=== PATIENT | male | born 1975 | race Caucasian/White ===

== ENCOUNTER 2016-07-15 10:58 | Day surgery (SDC) | payer OTHER ==
[2016-07-13 09:42] VITALS: BMI 34.8
[~2016-07-15 10:58] MED LIST: CLINDAMYCIN 900 MG in DEXTROSE 5% IN WATER 50 ML IVPB ONE; DEXAMETHASONE SOD PHOSPHATE 10 MG/ML 1 ML VIAL IV ONE; HEPARIN SODIUM,PORCINE 5,000 UNIT/ML 1 ML VIAL SQ ONE; LACTATED RINGERS 1,000 ML IV SCH; ONDANSETRON 4 MG/2 ML VIAL IVP ONE
[2016-07-15 11:49] LABS: Glucose,Whole Blood 134 mg/dL (75-99)
[2016-07-15] MEDS ORDERED: LIDOCAINE 1% 20 ML VIAL (10MG/ML) FOR IV START INTRADERMA ONE (11:49)
--- NOTE | 2016-07-15 11:57 | P.GSHP ---
History of Present Illness H&P Date: 07/15/16 Chief Complaint: Right upper quadrant pain This a 41-year-old male who presents today for laparoscopic cholecystectomy. Patient high scan which showed abnormal ejection fraction. Patient presents today for laparoscopic cholecystectomy. - Constitutional Constitutional: Reports as per HPI Past Medical History Past Medical History: Asthma, Diabetes Mellitus, Hyperlipidemia, Hypertension, Sleep Apnea/CPAP/BIPAP Additional Past Medical History / Comment(s): . uses cpap, History of Any Multi-Drug Resistant Organisms: None Reported Past Surgical History: Hernia Repair, Orthopedic Surgery Additional Past Surgical History / Comment(s): cyst removed lt hand & rt foot, rt inguinal hernia repair,sinuplasty Past Anesthesia/Blood Transfusion Reactions: Previous Problems w/ Anesthesia Additional Past Anesthesia/Blood Transfusion Reaction / Comment(s): low b/p after sinus surgery,no hx blood transfusion Past Psychological History: No Psychological Hx Reported Smoking Status: Never smoker Past Alcohol Use History: Occasional Past Drug Use History: None Reported - Past Family History Mother Additional Family Medical History / Comment(s): celiac disease, "cracked bladder " Father Family Medical History: Cancer Additional Family Medical History / Comment(s): leukemia,prostate ca Medications and Allergies Home Medications Medication Instructions Recorded Confirmed Type Alogliptin Richard/Pioglitazone 1 each PO DAILY 04/23/15 07/15/16 History [Oseni 25-45 mg Tablet] Ergocalciferol [Vitamin D2] 50,000 unit PO SUTH 04/23/15 07/15/16 History Lisinopril [Zestril] 20 mg PO QAM 04/23/15 07/15/16 History Loratadine [Claritin] 10 mg PO DAILY 04/23/15 07/15/16 History Montelukast [Singulair] 10 mg PO QAM 04/23/15 07/15/16 History Simvastatin [Zocor] 40 mg PO DAILY 04/23/15 07/15/16 History Lisdexamfetamine Dimesylate 60 mg PO QAM 07/13/16 07/15/16 History [Vyvanse] Allergies Allergy/AdvReac Type Severity Reaction Status Date / Time cefprozil [From Cefzil] Allergy Anaphylaxis Verified 07/13/16 09:32 cefuroxime axetil Allergy Anaphylaxis Verified 07/13/16 09:32 [From Ceftin] Surgical - Exam Vital Signs Temp Pulse Resp BP Pulse Ox 97.5 F L 102 H 18 148/90 97 07/15/16 11:31 07/15/16 11:31 07/15/16 11:31 07/15/16 11:31 07/15/16 11:31 - General well developed, no distress - Eyes PERRL - ENT normal pinna - Neck no masses - Respiratory normal expansion - Cardiovascular Rhythm: regular - Abdomen Abdomen: soft, non tender Results - Labs Abnormal Lab Results - Last 24 Hours (Table) 07/15/16 Range/Units 11:43 POC Glucose (mg/dL) 134 H (75-99) mg/dL Assessment and Plan Plan: Chronic cholecystitis. We'll perform laparoscopic cholecystectomy
[2016-07-15] MEDS ORDERED: ROCURONIUM BROMIDE 10 MG/ML 10 ML VIAL IV ONE (12:24)
[2016-07-15] MEDS ORDERED: GLYCOPYRROLATE 0.2 MG/ML 2 ML VIAL ONE (12:24)
[2016-07-15] MEDS ORDERED: MIDAZOLAM 2 MG/2 ML VIAL ONE (12:24)
[2016-07-15] MEDS ORDERED: fentaNYL (PF) 50 MCG/ML 2 ML AMP ONE (12:24)
[2016-07-15] MEDS ORDERED: PROPOFOL 10 MG/ML 20 ML VIAL IV ONE (12:24)
[2016-07-15] MEDS ORDERED: NEOSTIGMINE 1 MG/ML 10 ML VIAL ONE (12:24)
[2016-07-15] MEDS ORDERED: SUCCINYLCHOLINE CHLORIDE 100 MG/5 ML SYR IV ONE (12:24)
[2016-07-15] MEDS: GENTAMICIN 480 MG in SODIUM CHLORIDE 0.9% 100 ML IVPB ONE ×2 (12:34→12:52)
[2016-07-15] MEDS ORDERED: BUPIVACAIN-EPI 0.25%-1:200,000 30 ML VIAL SQ ONE (12:40)
[2016-07-15] MEDS ORDERED: LACTATED RINGERS 1,000 ML IV ONE (12:59)
--- NOTE | 2016-07-15 12:59 | P.OP ---
Date of Procedure: 07/15/16 Preoperative Diagnosis: Cholecystitis Postoperative Diagnosis: Cholecystitis Procedure(s) Performed: Laparoscopic cholecystectomy Anesthesia: TEE Surgeon: Simeon Jacobo Estimated Blood Loss (ml): 5 Pathology: other (Gallbladder) Condition: stable Disposition: PACU Description of Procedure: The patient was placed on the operating table. The patient received a general endotracheal tube anesthesia. The patients abdomen was prepped and draped in the usual sterile fashion. Through an infraumbilical stab incision, the fascia of the anterior abdominal wall was grasped with a pair of Kochers and then the Veress needle was placed in the peritoneal cavity. Position of the Veress needle was confirmed with positive drop test. The abdomen was then insufflated. After adequate insufflation, the 10 mm trocar was placed in the peritoneal cavity. Following this the laparoscope was placed in the peritoneal cavity. The patient was placed in the head-up, right side up position and then a 5 mm trocar was placed in the right lateral and right subcostal position under direct visualization. A 8 mm trocar was placed in the epigastric position. The gallbladder was grasped in the fundus and infundibulum. Traction on the gallbladder was placed in the lateral and the cephalad positions. The triangle of Calot was visualized.. The cystic duct was bluntly dissected until the union of the cystic duct and common bile duct was seen. The cystic duct was then divided and sealed with the Harmonic scissors. A PDS Endoloop was then placed throughout the cystic duct stump. The cystic artery divided and sealed with the Harmonic scissors. The gallbladder was then removed from the liver bed using Harmonic scissors. The gallbladder was then extracted through the epigastric port site. Operative field was checked for any bleeding spots and Harmonic scissors was used to coagulate the liver bed. The abdomen was irrigated. The trocars were removed. The skin was closed using interrupted 3-0 Vicryl suture. Dermabond dressing were applied. The patient tolerated the procedure well.
[2016-07-15] MEDS: HYDROmorphone 1 MG/ML 1 ML SYRINGE IVP PRN ×2 (13:16→13:22)
[2016-07-15] MEDS ORDERED: MIDAZOLAM 2 MG/2 ML VIAL IVP ONE (13:20)
[2016-07-15] MEDS ORDERED: KETOROLAC 30 MG/ML 1 ML VIAL IVP ONE (13:20)
[2016-07-15 13:28] VITALS: TEMP 97.2
[2016-07-15 14:02] VITALS: RESP 18
[2016-07-15] MEDS ORDERED: HYDROcodone/APAP 7.5-325MG 1 EACH TAB PO ONE (15:05)
[2016-07-15 15:43] VITALS: BP 138/91; PULSE 92
== END 2016-07-15 16:10 | disposition home or self-care (01) ==
LOC: OR 10:58
PROVIDERS: ATTEND Surgery
DX: K81.1 Chronic cholecystitis (principal); J45.909 Unspecified asthma, uncomplicated; E11.9 Type 2 diabetes mellitus without complications; Z79.84 Long term (current) use of oral hypoglycemic drugs; E78.5 Hyperlipidemia, unspecified; G47.30 Sleep apnea, unspecified; I10 Essential (primary) hypertension; Z99.89 Dependence on other enabling machines and devices; Z79.899 Other long term (current) drug therapy; Z88.1 Allergy status to other antibiotic agents
CPT/HCPCS: 88304; 47562; J2250; J1644; J1100; J2710; J2405; J3010; J1885; J1580; J1170; J0330; J2704

== ENCOUNTER → 2017-01-12 | Outpatient (CLI) | payer OTHER ==
--- NOTE | 2017-01-12 16:45 | CT ---
EXAMINATION TYPE: CT abdomen pelvis w con DATE OF EXAM: 01/12/2017 COMPARISON: NONE HISTORY: Patient complains of RLQ pain. CT DLP: 1869 mGycm Automated exposure control for dose reduction was used. TECHNIQUE: Helical acquisition of images was performed from the lung bases through the pelvis. CONTRAST: Performed with Oral Contrast and with IV Contrast, patient injected with 100 mL of Omnipaque 300. FINDINGS: Lung bases are clear. There is no pleural effusion. Heart size is normal. Liver shows no focal defect. Spleen pancreas appear normal. There are clips from cholecystectomy. Wiley e ducts are not dilated. There is no adrenal mass. Kidneys show satisfactory contrast opacification. There is no hydronephrosi s. Appendix appears normal. There are diverticula in the descending colon and sigmoid colon. There is mild fat stranding around the proximal sigmoid colon. Bladder distends smoothly. There is no evidenc e of a pelvic mass. I see no bony destructive process. There is spondylosis at L5-S1. IMPRESSION: MODERATE COLONIC DIVERTICULOSIS FOR THE PATIENT'S AGE. THERE IS EVIDENCE OF DIVERTICULITIS IN THE PROXIMAL SIGMOID COLON. NO DRAINABLE FLUID COLLECTION. NOR MAL APPENDIX.
== END | disposition home or self-care (01) ==
LOC: RADCTMAIN 14:39
PROVIDERS: ATTEND Family Medicine
DX: K57.32 Diverticulitis of large intestine without perforation or abscess without bleeding (principal); K57.30 Diverticulosis of large intestine without perforation or abscess without bleeding
CPT/HCPCS: 74177; Q9967

== ENCOUNTER 2017-12-20 08:04 | Day surgery (SDC) | payer OTHER ==
[2017-12-15 16:25] VITALS: BMI 31.1
[~2017-12-20 08:04] MED LIST changes: -CLINDAMYCIN 900 MG in DEXTROSE 5% IN WATER 50 ML IVPB ONE; -DEXAMETHASONE SOD PHOSPHATE 10 MG/ML 1 ML VIAL IV ONE; -HEPARIN SODIUM,PORCINE 5,000 UNIT/ML 1 ML VIAL SQ ONE; -ONDANSETRON 4 MG/2 ML VIAL IVP ONE
[2017-12-20 08:37] VITALS: TEMP 97.2
[2017-12-20 08:40] LABS: Glucose,Whole Blood 99 mg/dL (75-99)
[2017-12-20] MEDS ORDERED: fentaNYL (PF) 50 MCG/ML 2 ML AMP ONE (09:00)
[2017-12-20] MEDS ORDERED: LIDOCAINE 1% INJ 10MG/ML (20 ML MDV) ONE (09:00)
[2017-12-20] MEDS ORDERED: PROPOFOL 10 MG/ML 20 ML VIAL IV ONE (09:00)
--- NOTE | 2017-12-20 09:14 | P.GSHP ---
History of Present Illness H&P Date: 12/20/17 Chief Complaint: Indigestion, diarrhea, constipation This is a 42-year-old male referred from Dr. Usha pennington. Patient presents today for EGD and colonoscopy. He's had issues with indigestion, dyspepsia and alternating diarrhea and constipation. Past Medical History Past Medical History: Asthma, Diabetes Mellitus, Hyperlipidemia, Hypertension, Sleep Apnea/CPAP/BIPAP Additional Past Medical History / Comment(s): DOES NOT uses cpap, History of Any Multi-Drug Resistant Organisms: None Reported Past Surgical History: Cholecystectomy, Hernia Repair, Orthopedic Surgery Additional Past Surgical History / Comment(s): cyst removed lt hand & rt foot, rt inguinal hernia repair,sinuplasty Past Anesthesia/Blood Transfusion Reactions: Previous Problems w/ Anesthesia Additional Past Anesthesia/Blood Transfusion Reaction / Comment(s): low b/p after sinus surgery, no hx blood transfusion Smoking Status: Never smoker - Past Family History Mother Additional Family Medical History / Comment(s): celiac disease, "cracked bladder " Father Family Medical History: Cancer Additional Family Medical History / Comment(s): leukemia,prostate ca Medications and Allergies Home Medications Medication Instructions Recorded Confirmed Type Ergocalciferol [Vitamin D2] 50,000 unit PO SUTH 04/23/15 12/20/17 History Lisinopril [Zestril] 20 mg PO QAM 04/23/15 12/15/17 History Loratadine [Claritin] 10 mg PO DAILY 04/23/15 12/20/17 History Montelukast [Singulair] 10 mg PO QAM 04/23/15 12/20/17 History Simvastatin [Zocor] 40 mg PO DAILY 04/23/15 12/20/17 History Lisdexamfetamine Dimesylate 60 mg PO QAM 07/13/16 12/20/17 History [Vyvanse] Albuterol Inhaler [Ventolin Hfa 1 - 2 puff INHALATION RT-Q6H PRN 12/15/17 History Inhaler] Baclofen [Lioresal] 20 mg PO HS 12/15/17 12/20/17 History Empagliflozin [Jardiance] 25 mg PO HS 12/15/17 12/20/17 History Gabapentin [Neurontin] 300 mg PO HS 12/15/17 12/20/17 History Pantoprazole [Protonix] 40 mg PO DAILY 12/15/17 12/20/17 History Victoza 1.8 mg SQ HS 12/15/17 12/20/17 History Allergies Allergy/AdvReac Type Severity Reaction Status Date / Time cefprozil [From Cefzil] Allergy Anaphylaxis Verified 12/20/17 08:19 cefuroxime axetil Allergy Anaphylaxis Verified 12/20/17 08:19 [From Ceftin] Surgical - Exam Vital Signs Temp Pulse Resp BP Pulse Ox 97.2 F L 90 17 127/89 99 12/20/17 08:36 12/20/17 08:36 12/20/17 08:36 12/20/17 08:36 12/20/17 08:36 - General well developed, well nourished, no distress - Eyes PERRL - ENT normal pinna - Neck no masses - Respiratory normal expansion - Cardiovascular Rhythm: regular - Abdomen Abdomen: soft, non tender Assessment and Plan Assessment: Indigestion, diarrhea, constipation. We'll perform EGD and colonoscopy.
--- NOTE | 2017-12-20 09:31 | P.OP ---
Date of Procedure: 12/20/17 Preoperative Diagnosis: Indigestion Diarrhea Constipation Postoperative Diagnosis: Antral gastritis Mild diverticulosis Procedure(s) Performed: EGD Colonoscopy Anesthesia: MAC Surgeon: Simeon Jacobo Pathology: other (Antrum) Condition: stable Disposition: PACU Description of Procedure: The patient's placed on the endoscopy table in the lateral position. He received IV sedation. Digital rectal exam was performed which revealed no abnormality. The prostate was symmetric without nodules. Flexible colonoscope was then placed patient anus passed throughout the entire colon. The ileocecal valve visualized. The cecum, ascending transverse colon appeared normal. In the descending; was mild diverticular changes. There is known to Dr. escobedo. Scope summer back the rectum was performed. Scope was withdrawn for patient. Next the gastric scope placed oropharynx passed in the esophagus and stomach. Scope was then placed through the pylorus. The first and second portion of the duodenum appeared normal. The scope was then brought back and the antrum and this appeared to be inflamed. There is evidence of some minor hemorrhagic gastritis. This area is biopsied. The scope was then retroflexed and the remainder of the stomach appeared normal. The GE junction was at 40 cm. There is no evidence of hiatal hernia. The distal esophagus and proximal esophagus appeared normal. Scope was withdrawn for patient.
[2017-12-20 09:36] VITALS: RESP 16
[2017-12-20 09:57] VITALS: BP 117/79; PULSE 81
== END 2017-12-20 10:07 | disposition home or self-care (01) ==
LOC: ORWHC2ENDO 08:04
PROVIDERS: ATTEND Surgery
DX: K31.9 Disease of stomach and duodenum, unspecified (principal); K57.90 Diverticulosis of intestine, part unspecified, without perforation or abscess without bleeding; J45.909 Unspecified asthma, uncomplicated; E11.9 Type 2 diabetes mellitus without complications; E78.5 Hyperlipidemia, unspecified; I10 Essential (primary) hypertension; G47.30 Sleep apnea, unspecified; Z80.42 Family history of malignant neoplasm of prostate; Z80.6 Family history of leukemia; Z83.79 Family history of other diseases of the digestive system; Z79.84 Long term (current) use of oral hypoglycemic drugs; Z79.82 Long term (current) use of aspirin; Z79.899 Other long term (current) drug therapy; Z88.1 Allergy status to other antibiotic agents
CPT/HCPCS: 88305; 45378; 43239; J2001; J3010; J2704

== ENCOUNTER → 2018-08-11 | Outpatient (CLI) | payer OTHER ==
--- NOTE | 2018-08-12 17:41 | MR ---
EXAMINATION TYPE: MR hand RT wo con DATE OF EXAM: 08/11/2018 COMPARISON: None HISTORY: Pain and swelling Standard multiplanar, multisequence MRI departmental protocol Multiplanar, multisequence images of the right hand were acquired. Diffusion weighted imaging was per formed. FINDINGS: The metacarpals are intact. There is no evidence for fracture. I see no bony destructive pr ocess. There is no evidence of a soft tissue mass. The flexor and extensor tendons appear intact. The intercarpal joint spaces appear fairly normal. There is no subluxation. IMPRESSION: Negative MR scan of the right hand.
== END | disposition home or self-care (01) ==
LOC: RADMRIMAIN 20:20
PROVIDERS: ATTEND Family Medicine
DX: G56.21 Lesion of ulnar nerve, right upper limb (principal)

== ENCOUNTER → 2018-08-14 | Outpatient (CLI) | payer OTHER ==
--- NOTE | 2018-08-16 08:17 | MR ---
MR right wrist HISTORY: Pain and swelling, clicking, G 56.21 Multiplanar multisequence imaging obtained through the right wrist and correlated to right hand MRI , no plain film submitted. There is T2 intense focus noted within the subchondral location of distal scaphoid and also proximal capitate suggestive of geode formation, reactive marrow signal changes noted. Joint space loss, loss of articular cartilage is noted, similar signal changes present at the subchondral location at its ar ticulation with the scaphoid of the trapezoid. There is some hypertrophic change present. Minimal sub chondral signal change present at the proximal first metacarpal also present. Scapholunate, lunotriqu etral ligaments are intact. Triangular fibrocartilage intact. Minimal joint effusion present. There is some T2 intense signal present at the level of the extensor carpi ulnaris tendon, some fluid signal present along the tendon sheath, the tendon is subluxed slightly in a volar direction. Findin gs suggest subacute injury. There is associated increased internal signal within the tendon suggestin g partial tear, tendinosis. Subcutaneous tissues show some mild T2 intensity suggestive of associated soft tissue edema. IMPRESSION: There is likely injury to the extensor carpi ulnaris tendon itself sheath, associated ten dinosis with slight subluxation, there may be partial tear of the tendon. Osteoarthritis.
== END | disposition home or self-care (01) ==
LOC: RADMRIMAIN 19:37
PROVIDERS: ATTEND Family Medicine
DX: M19.031 Primary osteoarthritis, right wrist (principal)

== ENCOUNTER → 2022-03-16 | Outpatient (CLI) | payer BC ==
--- NOTE | 2022-03-16 09:40 | CT ---
EXAMINATION TYPE: CT iac wo con CT DLP: 150.00 mGycm, Automated exposure control for dose reduction was used. DATE OF EXAM: 03/16/2022 6:43 AM INDICATION: Patient age:Male; 46 years old; Reason for study: H92.02 Otalgia L ear; [facility]. COMPARISON: CT facial bones 02/02/2012. TECHNIQUE: Multiple thin axial images were obtained through the temporal bones and internal auditory canals. Additional coronal reformatted images were obtained. No IV contrast was utilized. FINDINGS: Right Temporal Bone: External Ear: The external auditory canal is unremarkable, The tympanic membrane is present and unrem arkable. Middle Ear: The ossicles demonstrate a normal appearance. Prussak's space is clear and the scutum i s intact. There is no evidence of osseous erosion and the tegmen tympani is intact. Inner Ear: Cochlea, vestibule and semi circular canals are unremarkable. No evidence of carotid jordan l dehiscence. Two and a half turns of the cochlea are identified. The vestibular aqueduct is not enl arged. Mastoid Air Cells: Minimal opacification of the inferior mastoid air cells. No osseous erosions. The tegmen mastoideum is intact. The aditus ad antrum is clear. Internal Auditory Canal: The internal auditory canal is unremarkable. High riding jugular bulb. Left Temporal Bone: External Ear: The external auditory canal is unremarkable, The tympanic membrane is present and unrem arkable. Middle Ear: The ossicles demonstrate a normal appearance. Prussak's space is clear and the scutum i s intact. There is no evidence of osseous erosion and the tegmen tympani is intact. Inner Ear: Cochlea, vestibule and semi circular canals are unremarkable. No evidence of carotid jordan l dehiscence. Two and a half turns of the cochlea are identified. The vestibular aqueduct is not enl arged. Mastoid Air Cells: The mastoid air cells are clear. The tegmen mastoideum is intact. The aditus ad an trum is clear. Internal Auditory Canal: The internal auditory canal is unremarkable. Suggested 2.4 cm mucous retention cyst within the left maxilla sinus. Minimal mucosal thickening of t he bilateral maxillary sinuses. IMPRESSION: 1. Minimal opacification inferior right mastoid air cells. No osseous erosions. Correlate for mastoi ditis. 2. High riding right jugular bulb.
== END | disposition home or self-care (01) ==
LOC: RADCTMAIN 06:17
PROVIDERS: ATTEND Otolaryngology
DX: H74.8X1 Other specified disorders of right middle ear and mastoid (principal); H92.02 Otalgia, left ear
CPT/HCPCS: 70480

== ENCOUNTER 2022-06-24 06:55 | Day surgery (SDC) | payer BC ==
[2022-06-21 08:37] VITALS: BMI 30.8
[~2022-06-24 06:55] MED LIST changes: +CLINDAMYCIN 600 MG in DEXTROSE 5% IN WATER 50 ML IVPB PRN; +DEXAMETHASONE SOD PHOSPHATE 4 MG/ML 1 ML VIAL IV ONE; +FAMOTIDINE 20 MG/2 ML VIAL IV PRN; +ONDANSETRON 4 MG/2 ML VIAL IVP ONE; +ONDANSETRON 4 MG/2 ML VIAL IVP PRN
[2022-06-24] MEDS: OXYMETAZOLINE 0.05% NASL SPRAY 1 SPRAY BOTTLE EA NOSTRIL PRN ×5 (07:30→07:50)
[2022-06-24 07:41] LABS: Glucose,Whole Blood 130 mg/dL (70-110)
[2022-06-24] MEDS ORDERED: MIDAZOLAM 2 MG/2 ML VIAL IV ONE (08:49)
[2022-06-24] MEDS ORDERED: PROPOFOL 10 MG/ML 20 ML VIAL IV ONE (08:49)
[2022-06-24] MEDS ORDERED: ePHEDrine 50 MG/ML 1 ML VIAL ONE (08:49)
[2022-06-24] MEDS ORDERED: LIDOCAINE 2% INJ 20 MG/ML (2 ML VIAL) ONE (08:49)
[2022-06-24] MEDS ORDERED: MIDAZOLAM 2 MG/2 ML VIAL ONE (08:49)
[2022-06-24] MEDS ORDERED: fentaNYL (PF) 50 MCG/ML 2 ML AMP ONE (08:49)
[2022-06-24] MEDS ORDERED: PHENYLEPHRINE-0.9% NACL SYG 1,000 MCG/10 ML SYRINGE ONE (08:49)
[2022-06-24] MEDS ORDERED: BUPIVACAIN-EPI 0.25%-1:200,000 30 ML VIAL INTRAARTIC ONE ×2 (09:06)
[2022-06-24] MEDS ORDERED: EPINEPHrine 1 MG/ML (MDV) 30 ML VIAL TOPICAL ONE (09:06)
[2022-06-24] MEDS ORDERED: FLUORESCEIN STRIPS 1 MG STRIP MISCELLANE ONE (09:06)
[2022-06-24] MEDS ORDERED: LIDOCAINE 1%-EPI 1:100,000 20 ML VIAL SUBMUCOSAL ONE ×2 (09:06)
[2022-06-24] MEDS ORDERED: BACITRACIN ZINC 500 UNIT/GM OINT 28.4 GM TUBE TOPICAL ONE ×2 (09:32→09:40)
[2022-06-24] MEDS ORDERED: LACTATED RINGERS 1,000 ML IV ONE (09:50)
[2022-06-24 10:08] VITALS: TEMP 97.2
--- NOTE | 2022-06-24 10:14 | P.OP ---
Date of Procedure: 06/24/22 Preoperative Diagnosis: Chronic maxillary sinusitis with a left maxillary sinus cystic polyp Deviated nasal septum Postoperative Diagnosis: Same Procedure(s) Performed: Bilateral functional endoscopic sinus surgery with maxillary antrostomies and removal of diseased tissue and left-sided polyp cyst Septoplasty Anesthesia: TEE Surgeon: Sonido Montoya Estimated Blood Loss (ml): 10 Pathology: other (Sinonasal) Condition: stable Disposition: PACU Indications for Procedure: This patient presents with constant thick discolored postnasal drainage with ear fullness and pressure the left side being worse than the right complains of nasal obstruction he has failed medical therapy area along with multiple courses of antibiotics Flonase nasal spray nasal irrigations. CAT scan evaluation demonstrates chronic maxillary sinusitis along with a large polyp or cyst of the left maxillary sinus was completely filling the left maxillary sinus. Septal deflection was noted. He's failed medical therapy and surgical correction was recommended. All risks, benefits, and alternative therapies were discussed. Consent was obtained and all questions were answered. He was previously placed on multiple courses of antibiotics, Flonase nasal spray, nasal irrigations all with failure. Operative Findings: Patient had a deviated septum along with blockage of the maxillary sinuses and a large cystic polyp of the left maxillary sinus that was completely filled the sinus. There was diseased tissue bilaterally. Description of Procedure: Preoperatively the patient had her consent reviewed. All risks, benefits, and alternative therapies were discussed and all questions were answered. The patient was informed of the procedure and a confirmatory fashion and was in agreement to proceed forward. In the operating room a timeout was performed and all issues were reviewed with the operating room staff. The patient underwent a general inhalation anesthetic and intubated by the department of anesthesia and also monitored throughout the entire case by the department of anesthesia. A functioning IV line was in place. The patient was positioned in the supine position with slight reverse Trendelenburg. Preoperatively she had Afrin nasal spray. We then injected the septum, lateral nasal wall, turbinates with lidocaine 1% with epinephrine 1 100,000. Approximately 10 minutes were allowed wait for full vasoconstrictive effects to take place. A caudal incision was made over the caudal portion of the left septum down to the mucoperichondrium. A mucoperichondrial flap was developed with use of tunnels inferiorly and superiorly. We identified the deviation and with use of crosshatching incisions the septum was placed back in the midline in excellent position relieving this patient of this deviated nasal septum. We closed the incision with a 40 rapid Vicryl and a quilting stitch was used to reapproximate the septal flap. The septum was corrected and a swing door type fashion. The septum was sutured fixated to the vomer area and groove with use of a 40 rapid Vicryl. Attention was then paid to the middle turbinates which were brought medial. The uncinate process was visualized and reflected forward with a Austin probe. With the use of an endoscope utilizing 0 30 and 90 we perform this procedure and utilize this endoscope on a video camera throughout the entire procedure. This was with use of a Rodriguez krystin scope. We then took down the uncinate process with a pediatric backbiter and a microdebrider. After the uncinate process was removed the maxillary sinuses were opened widely with use of a s traight boss. We open the maxillary sinuses widely and into the maxillary sinuses with endoscopic visualization. Diseased tissue was removed from the maxillary sinuses bilaterally and the sinuses were opened bilaterally. A large left cystic-type polyp was removed from the left maxillary sinus and diseased tissue was removed from both maxillary sinuses.. We also opened up nasal antral windows underneath the inferior turbinates to gain access to the diseased tissue.. Excellent hemostasis was obtained throughout the entire case and very low blood was noted. The skull base and orbital mitchell looked good. We reinspected the sinonasal region and no bleeding was encountered. The patient was then taken to postanesthesia recovery in excellent condition. A follow-up is scheduled for next week. The patient is to contact me if there is any problems or issues.
[2022-06-24] MEDS: HYDROmorphone 0.5 MG/0.5 ML SYRINGE IVP PRN ×3 (10:26→10:47)
[2022-06-24] MEDS ORDERED: hydrALAZINE HCL 20 MG/ML 1 ML VIAL IVP ONE (10:50)
[2022-06-24 11:43] VITALS: RESP 15
[2022-06-24 12:45] VITALS: BP 157/92; PULSE 81
== END 2022-06-24 12:45 | disposition home or self-care (01) ==
LOC: OR 06:55
PROVIDERS: ATTEND Otolaryngology
DX: J34.2 Deviated nasal septum (principal); J32.0 Chronic maxillary sinusitis; I10 Essential (primary) hypertension; G47.33 Obstructive sleep apnea (adult) (pediatric); E78.00 Pure hypercholesterolemia, unspecified; J45.909 Unspecified asthma, uncomplicated; Z98.890 Other specified postprocedural states; Z79.899 Other long term (current) drug therapy
CPT/HCPCS: 88305; 31267; 30520; J0171; J2250; J0360; J1100; J2405; J3010; J2370; J2704; J1170; J2001

== ENCOUNTER 2023-01-13 06:45 | Day surgery (SDC) | payer BC ==
[2022-12-10 12:14] VITALS: BMI 30.8
[2023-01-13] MEDS ORDERED: LIDOCAINE 1% (10MG/ML) FOR IV START INTRADERMA PRN (07:07)
[2023-01-13] MEDS ORDERED: LACTATED RINGERS 1,000 ML IV SCH (07:07)
[2023-01-13 07:22] LABS: Glucose,Whole Blood 136 mg/dL (70-110)
[2023-01-13] MEDS ORDERED: ONDANSETRON 4 MG/2 ML VIAL ONE (07:23)
[2023-01-13] MEDS ORDERED: ONDANSETRON 4 MG/2 ML VIAL IVP ONE (07:25)
[2023-01-13 07:31] VITALS: TEMP 97
[2023-01-13] MEDS ORDERED: PROPOFOL 10 MG/ML 20 ML VIAL IV ONE (07:33)
--- NOTE | 2023-01-13 07:49 | P.GSHP ---
History of Present Illness H&P Date: 01/13/23 Chief Complaint: Screening colonoscopy Is a 47-year-old male presents today for screening colonoscopy. Patient denies a significant GI complaints. Past Medical History Past Medical History: Asthma, Diabetes Mellitus, Hyperlipidemia, Hypertension Additional Past Medical History / Comment(s): sinus polyp, steroids Apr 2022, History of Any Multi-Drug Resistant Organisms: None Reported Past Surgical History: Appendectomy, Cholecystectomy, Hernia Repair, Orthopedic Surgery Additional Past Surgical History / Comment(s): cyst removed lt hand & rt foot,rt inguinal hernia repair,sinuplasty Past Anesthesia/Blood Transfusion Reactions: Previous Problems w/ Anesthesia Additional Past Anesthesia/Blood Transfusion Reaction / Comment(s): low b/p after sinus surgery 2012, no hx blood transfusion Smoking Status: Never smoker - Past Family History Mother Additional Family Medical History / Comment(s): celiac disease, "cracked bladder" Father Family Medical History: Cancer Additional Family Medical History / Comment(s): leukemia,prostate ca Medications and Allergies Home Medications Medication Instructions Recorded Confirmed Type Ergocalciferol [Vitamin D2] 50,000 unit PO TU 04/23/15 01/11/23 History Simvastatin [Zocor] 40 mg PO DAILY 04/23/15 01/11/23 History lisinopriL [Zestril] 20 mg PO QAM 04/23/15 01/11/23 History Empagliflozin [Jardiance] 25 mg PO DAILY 12/15/17 01/11/23 History Montelukast Sodium [Singulair] 10 mg PO HS 06/21/22 01/11/23 History Semaglutide [Ozempic] 1 mg SQ SUTH 06/21/22 01/11/23 History Ibuprofen [Advil] 200 mg PO DAILY PRN 01/11/23 01/11/23 History Allergies Allergy/AdvReac Type Severity Reaction Status Date / Time cefprozil [From Cefzil] Allergy Anaphylaxis Verified 01/13/23 07:07 cefuroxime axetil Allergy Anaphylaxis Verified 01/13/23 07:07 [From Ceftin] Surgical - Exam Vital Signs Temp Pulse Resp BP Pulse Ox 97 F L 91 16 136/92 97 01/13/23 07:12 01/13/23 07:12 01/13/23 07:12 01/13/23 07:12 01/13/23 07:12 - General well developed, well nourished, no distress - Eyes PERRL - ENT normal pinna - Neck no masses - Respiratory normal expansion - Cardiovascular Rhythm: regular - Abdomen Abdomen: soft, non tender Results - Labs Abnormal Lab Results - Last 24 Hours (Table) 01/13/23 Range/Units 07:21 POC Glucose (mg/dL) 136 H (70-110) mg/dL Assessment and Plan Assessment: We'll perform screening colonoscopy
--- NOTE | 2023-01-13 07:51 | P.OP ---
Date of Procedure: 01/13/23 Preoperative Diagnosis: Screening colonoscopy Postoperative Diagnosis: Diverticulosis Procedure(s) Performed: Colonoscopy Anesthesia: MAC Surgeon: Simeon Jacobo Pathology: none sent Condition: stable Disposition: PACU Description of Procedure: The patient's placed on the endoscopy table in the lateral position. He received IV sedation. Digital rectal exam performed. This revealed no abnormalities. Flexible colonoscope was then placed patient anus and passed throughout the entire colon. The ileocecal valve was visualized. The cecum, ascending and transverse colon appeared normal. In the descending and sigmoid colon there was moderate diverticular changes. Scope was brought back the rectum. Scope was then withdrawn for patient.
[2023-01-13 08:25] VITALS: BP 126/81; PULSE 87
[2023-01-13 08:26] VITALS: RESP 18
== END 2023-01-13 08:38 | disposition home or self-care (01) ==
LOC: ORWHC2ENDO 06:45
PROVIDERS: ATTEND Surgery
DX: Z12.11 Encounter for screening for malignant neoplasm of colon (principal); J45.909 Unspecified asthma, uncomplicated; E11.9 Type 2 diabetes mellitus without complications; E78.5 Hyperlipidemia, unspecified; I10 Essential (primary) hypertension; Z90.49 Acquired absence of other specified parts of digestive tract; Z98.890 Other specified postprocedural states; Z79.84 Long term (current) use of oral hypoglycemic drugs; Z88.1 Allergy status to other antibiotic agents; Z79.899 Other long term (current) drug therapy
CPT/HCPCS: 45378; J2405; J2704